=== PATIENT | female | born 1945 | race Caucasian/White ===

== ENCOUNTER 2019-11-02 13:24 | Inpatient (IN) ==
[2019-11-02 14:53] LABS: ABS Basophils 0.1 10^3/ul (0-0.2); ABS Lymphocytes 0.8 10^3/ul (1.0-4.8); ABS Monocytes 0.4 10^3/ul (0-0.8); ABS Neutrophils 3.9 10^3/ul (1.5-7.7); Eosinophil % 0.9 %; Hematocrit 28 % (35-47); Hemoglobin 9.7 g/dL (12.0-16.0); Lymphocyte % 14.9 %; Mean Corpuscular HGB Conc 35 g/dL (31-36); Mean Corpuscular Hemoglobin 36 pg (27-31); Mean Corpuscular Volume 102 fL (80-97); Mean Platelet Volume 6.4 fL (7.4-10.4); Nucleated Red Blood Cells % 0.1; Platelet Count 177 10^3/uL (150-450); Red Blood Count 2.69 10^6 /uL (3.70-4.87); Red Cell Distribution Width 17 % (10-15); White Blood Count 5.2 10^3/uL (3.5-10.8)
[2019-11-02 15:01] LABS: INR 1.78 (0.82-1.09)
[2019-11-02 15:20] LABS: ALT 22 U/L (7-52); AST 99 U/L (13-39); Albumin 2.5 g/dL (3.2-5.2); Albumin/Globulin Ratio 0.6 (1-3); Alkaline Phosphatase 141 U/L (34-104); Anion Gap 8 mmol/L (2-11); Blood Urea Nitrogen 8 mg/dL (6-24); CO2 Carbon Dioxide 26 mmol/L (22-32); Calcium 8.5 mg/dL (8.6-10.3); Chloride 95 mmol/L (101-111); EGFR African American 125.5 (>60); EGFR Non-African American 103.7 (>60); Globulin 4.3 g/dL (2-4); Glucose 172 mg/dL (70-100); Potassium 3.9 mmol/L (3.5-5.0); Sodium 129 mmol/L (135-145); Total Protein 6.8 g/dL (6.4-8.9)
[2019-11-02 15:24] LABS: Troponin I 0.17 ng/mL (<0.03)
[2019-11-02] MEDS ORDERED: Iohexol 350 (CONTRAST) 500 ML MDV IV ONE (15:49)
[2019-11-02] MEDS ORDERED: Albuterol/Ipratropium NEB.SOL (2.5/0.5 MG) 3 ML NEB.SOLN INH ONE (16:23)
[2019-11-02] MEDS ORDERED: Albuterol/Ipratropium NEB.SOL (2.5/0.5 MG) 3 ML NEB.SOLN ONE ×2 (16:32→17:39)
[2019-11-02] MEDS ORDERED: Nitroglycerin 0.3 mg TAB SL ONE (16:38)
[2019-11-02] MEDS ORDERED: Furosemide 40 mg/4 ml IV VIAL IV SLOW PU ONE ×2 (17:45→22:00)
[2019-11-02] MEDS ORDERED: Furosemide 40 mg/4 ml IV VIAL ONE ×2 (17:52→22:13)
[2019-11-02] MEDS ORDERED: Metoprolol Tartrate 5 mg VIAL 5 ml VIAL (1 mg/ml) IV ONE (18:19)
[2019-11-02] MEDS ORDERED: Ondansetron 4 mg VIAL 2 MG/ML 2 ml VIAL IV PRN (18:33)
[2019-11-02] MEDS ORDERED: Senna TAB 8.6 mg TAB PO PRN (18:33)
[2019-11-02 18:53] LABS: Total Bilirubin 6.8 mg/dL (0.2-1.0)
[2019-11-02 18:56] LABS: Magnesium 1.6 mg/dL (1.9-2.7)
[2019-11-02] MEDS ORDERED: Metoprolol Tartrate 5 mg VIAL 5 ml VIAL (1 mg/ml) IV PRN (18:59)
[2019-11-02] MEDS ORDERED: Thiamine 100 MG/ML 2 ml VIAL (200 mg) IM ONE (18:59)
[2019-11-02 19:06] LABS: Indirect Bilirubin 4.9 mg/dL (0.3-1.0)
[2019-11-02] MEDS ORDERED: Metoprolol Tartrate 5 mg VIAL 5 ml VIAL (1 mg/ml) ONE (19:22)
[2019-11-02 19:34] LABS: Troponin I 0.56 ng/mL (<0.03)
[2019-11-02] MEDS ORDERED: Magnesium Sulfate IV 3 GM in NS 0.9% 100 ml BAG 100 ML IVPB ONE (19:34)
[2019-11-02] MEDS ORDERED: KCL 20 MEQ/100 ML IVPREMIX 20 MEQ/100 ML BAG IV ONE (19:34)
[2019-11-02] MEDS: Brimonidine P 0.15%(NF) OPH SOL 5 ML BTL LEFT EYE SCH (20:51)
[2019-11-02] MEDS: Timolol 0.5% OPTH.SOL BTL BOTH EYES SCH (20:51)
[2019-11-02] MEDS: Latanoprost 0.005% 2.5 ml BTL BOTH EYES SCH (20:52)
[2019-11-02] MEDS ORDERED: Enoxaparin 40 MG/0.4 ML SYR SUBCUT SCH (21:00)
[2019-11-02] MEDS: Lactulose 30 ml UDC PO SCH (21:20)
[2019-11-02 21:59] LABS: Folate 4.93 ng/mL (>3.99)
[2019-11-02 22:00] LABS: Vitamin B12 677 pg/mL (180-914)
[2019-11-02 22:13] LABS: Urine Appearance Clear; Urine Bilirubin Negative (Negative); Urine Blood 1+ (Negative); Urine Color Yellow; Urine Glucose Negative (Negative); Urine Ketones Negative (Negative); Urine Nitrite Negative (Negative); Urine Protein Negative (Negative); Urine Specific Gravity 1.005 (1.010-1.030); Urine Urobilinogen Negative (Negative)
[2019-11-02 22:17] LABS: Troponin I 0.62 ng/mL (<0.03)
[2019-11-02 22:18] LABS: Urine Bacteria Absent (Absent); Urine Red Blood Cell Trace(0-2/hpf) (Absent); Urine Squamous Epithelial Cell Present (Absent); Urine White Blood Cell Trace(0-5/hpf) (Absent)
[2019-11-03] MEDS ORDERED: Metoprolol Tartrate 5 mg VIAL 5 ml VIAL (1 mg/ml) IV SCH
[2019-11-03] MEDS ORDERED: LORazepam 2 mg VIAL 1 ml IV PUSH ONE ×2 (03:25→20:50)
[2019-11-03] MEDS ORDERED: Lorazepam PYXIS KEY PRN ×2 (03:25→20:50)
[2019-11-03 04:30] LABS: ABS Basophils 0.1 10^3/ul (0-0.2); ABS Monocytes 0.6 10^3/ul (0-0.8); ABS Neutrophils 6.1 10^3/ul (1.5-7.7); Hematocrit 27 % (35-47); Hemoglobin 9.2 g/dL (12.0-16.0); Lymphocyte % 12.5 %; Mean Corpuscular HGB Conc 35 g/dL (31-36); Mean Corpuscular Hemoglobin 36 pg (27-31); Mean Corpuscular Volume 102 fL (80-97); Mean Platelet Volume 6.9 fL (7.4-10.4); Platelet Count 171 10^3/uL (150-450); Red Blood Count 2.59 10^6 /uL (3.70-4.87); Red Cell Distribution Width 16 % (10-15); White Blood Count 7.8 10^3/uL (3.5-10.8)
[2019-11-03 04:42] LABS: INR 1.95 (0.82-1.09)
[2019-11-03 04:46] LABS: Indirect Bilirubin 5.4 mg/dL (0.3-1.0); Magnesium 1.9 mg/dL (1.9-2.7)
[2019-11-03] MEDS ORDERED: Iohexol 350 (CONTRAST) 500 ML MDV IV ONE (05:26)
[2019-11-03] MEDS: Furosemide 40 mg/4 ml IV VIAL IV SCH ×2 (06:01→07:01)
[2019-11-03 06:09] LABS: Albumin 2.5 g/dL (3.2-5.2); Anion Gap 9 mmol/L (2-11); CO2 Carbon Dioxide 27 mmol/L (22-32); Calcium 8.5 mg/dL (8.6-10.3); Chloride 95 mmol/L (101-111); Potassium 3.6 mmol/L (3.5-5.0); Sodium 131 mmol/L (135-145)
[2019-11-03 06:15] LABS: ALT 21 U/L (7-52); AST 96 U/L (13-39); Albumin/Globulin Ratio 0.6 (1-3); Alkaline Phosphatase 137 U/L (34-104); BUN/Creatinine Ratio 15.3 (8-20); Blood Urea Nitrogen 11 mg/dL (6-24); EGFR African American 95.8 (>60); EGFR Non-African American 79.2 (>60); Globulin 4.3 g/dL (2-4); Glucose 163 mg/dL (70-100); Total Protein 6.8 g/dL (6.4-8.9)
[2019-11-03 06:21] LABS: Troponin I 0.63 ng/mL (<0.03)
[2019-11-03] MEDS: LORazepam 2 mg VIAL 1 ml IV PUSH SCH ×2 (06:22→10:38)
[2019-11-03] MEDS: Timolol 0.5% OPTH.SOL BTL BOTH EYES SCH ×2 (08:19→20:35)
[2019-11-03] MEDS: Brimonidine P 0.15%(NF) OPH SOL 5 ML BTL LEFT EYE SCH ×2 (08:19→20:33)
[2019-11-03] MEDS ORDERED: Furosemide 40 mg/4 ml IV VIAL IV SLOW PU ONE (08:58)
[2019-11-03] MEDS ORDERED: Phytonadione IV (Adult) 10 MG/ML 1 ML AMP IV ONE (09:03)
[2019-11-03] MEDS ORDERED: Metoprolol Tartrate 5 mg VIAL 5 ml VIAL (1 mg/ml) IV PRN ×2 (09:07)
[2019-11-03 09:10] LABS: Creatine Kinase 98 U/L (10-223)
[2019-11-03 09:10] LABS: Creatine Kinase 70 U/L (10-223)
[2019-11-03] MEDS ORDERED: Magnesium Sulfate 2 gm BAG 2 GM/50 ML BAG IVPB ONE (09:10)
[2019-11-03 09:11] LABS: Creatine Kinase 124 U/L (10-223)
[2019-11-03 09:16] LABS: CKMB ng/mL 3.7 ng/mL (0.6-6.3)
[2019-11-03 09:16] LABS: CKMB ng/mL 6.3 ng/mL (0.6-6.3)
[2019-11-03] MEDS ORDERED: Phytonadione IV (Adult) 5 MG in NS 0.9% 50 ML 50 ML IV ONE (09:30)
[2019-11-03 09:36] LABS: CKMB ng/mL 7.9 ng/mL (0.6-6.3)
[2019-11-03 09:41] LABS: Creatine Kinase 154 U/L (10-223)
[2019-11-03 09:52] LABS: ABS Basophils 0.1 10^3/ul (0-0.2); ABS Lymphocytes 1.1 10^3/ul (1.0-4.8); ABS Monocytes 0.6 10^3/ul (0-0.8); ABS Neutrophils 7.1 10^3/ul (1.5-7.7); Hematocrit 24 % (35-47); Hemoglobin 8.3 g/dL (12.0-16.0); Lymphocyte % 12.2 %; Mean Corpuscular HGB Conc 35 g/dL (31-36); Mean Corpuscular Hemoglobin 36 pg (27-31); Mean Corpuscular Volume 102 fL (80-97); Mean Platelet Volume 7.1 fL (7.4-10.4); Nucleated Red Blood Cells % 0.2; Platelet Count 147 10^3/uL (150-450); Red Blood Count 2.32 10^6 /uL (3.70-4.87); Red Cell Distribution Width 16 % (10-15); White Blood Count 8.9 10^3/uL (3.5-10.8)
[2019-11-03 10:00] LABS: INR 2.08 (0.82-1.09)
[2019-11-03 10:06] LABS: Magnesium 1.7 mg/dL (1.9-2.7)
[2019-11-03 10:13] LABS: Troponin I 0.53 ng/mL (<0.03)
[2019-11-03] MEDS: KCL 20 MEQ/100 ML IVPREMIX 20 MEQ/100 ML BAG IV SCH ×2 (10:17→12:25)
[2019-11-03] MEDS ORDERED: cefTRIAXone 1 gm/50 mL NS BAG 1 GM/50 ML BAG IVPB ONE (10:30)
[2019-11-03 10:40] LABS: % Iron Saturation 104 % (15-55); Iron 116 ug/dL (50-212); Total Iron Binding Capacity 112 mcg/dL (250-450); Transferrin 80 mg/dL (203-362); Unsaturated Iron Binding < 97 ug/dL
[2019-11-03] MEDS ORDERED: Succinylcholine 200 mg VIAL 20 mg/ml 10 ml VIAL (200 mg) ONE ×3 (16:03→23:11)
[2019-11-03] MEDS ORDERED: Etomidate 40 mg/20 ml (2 MG/ML) 20 ml VIAL (40 mg) ONE (16:13)
[2019-11-03] MEDS ORDERED: Propofol 10 mg/ml 100 ML BTL 100 ML ONE (16:16)
[2019-11-03] MEDS ORDERED: Octreotide Acetate 500 MCG/ML 1 ML VIAL IV ONE (16:26)
[2019-11-03] MEDS ORDERED: Propofol 10 mg/ml 100 ML BTL 100 ML IV SCH (17:00)
[2019-11-03] MEDS ORDERED: Octreotide Acetate 100 mcg/ml 50 MCG in NS 0.9% 50 ML 50 ML IV ONE (17:00)
[2019-11-03] MEDS: Lactulose 30 ml UDC PO SCH ×3 (17:21→20:34)
[2019-11-03] MEDS: Rifaximin 20 mg/mL Suspension (Pharmacy to Compound) PO SCH ×2 (17:29→20:35)
[2019-11-03] MEDS: Octreotide Acetate 500 MCG in NS 0.9% 100 ml BAG 100 ML IV SCH (18:18)
[2019-11-03] MEDS ORDERED: Midazolam 50 MG VIAL IV DRIP 50 ML IV SCH (20:00)
[2019-11-03] MEDS: cefTRIAXone 1 gm/50 mL NS BAG 1 GM/50 ML BAG IVPB SCH (20:00)
[2019-11-03 20:23] LABS: ALT 17 U/L (7-52); Albumin 2.2 g/dL (3.2-5.2); Albumin/Globulin Ratio 0.7 (1-3); Alkaline Phosphatase 100 U/L (34-104); Blood Urea Nitrogen 12 mg/dL (6-24); CO2 Carbon Dioxide 24 mmol/L (22-32); Calcium 7.3 mg/dL (8.6-10.3); Chloride 100 mmol/L (101-111); EGFR African American 118.2 (>60); EGFR Non-African American 97.7 (>60); Globulin 3.2 g/dL (2-4); Glucose 112 mg/dL (70-100); Sodium 132 mmol/L (135-145); Total Protein 5.4 g/dL (6.4-8.9)
[2019-11-03 20:25] LABS: Anion Gap 8 mmol/L (2-11)
[2019-11-03] MEDS ORDERED: LORazepam 2 mg VIAL 1 ml ONE (20:30)
[2019-11-03] MEDS: Latanoprost 0.005% 2.5 ml BTL BOTH EYES SCH (20:34)
[2019-11-03] MEDS: Pantoprazole VIAL 40 MG VIAL IV SCH (20:35)
[2019-11-03] MEDS ORDERED: Furosemide 40 mg/4 ml IV VIAL IV SCH (21:00)
[2019-11-03 22:57] LABS: Potassium Redraw 3.5 mmol/L (3.5-5.0)
[2019-11-03] MEDS ORDERED: Etomidate 20 mg/10 ml 2 MG/ML 10 ml VIAL ONE (23:11)
[2019-11-03] MEDS ORDERED: Etomidate 20 mg/10 ml 2 MG/ML 10 ml VIAL IV ONE (23:33)
[2019-11-04] MEDS: Chlorhexidine MOUTHWASH 0.12% 15 ML UDC SCH ×6 (02:14→19:35)
[2019-11-04] MEDS: Midazolam 50 MG VIAL IV DRIP 50 ML IV SCH ×2 (03:26→14:20)
[2019-11-04] MEDS: Octreotide Acetate 500 MCG in NS 0.9% 100 ml BAG 100 ML IV SCH ×2 (05:02→17:15)
[2019-11-04 05:10] LABS: ABS Eosinophils 0.1 10^3/ul (0-0.6); ABS Lymphocytes 1.6 10^3/ul (1.0-4.8); ABS Monocytes 0.6 10^3/ul (0-0.8); ABS Neutrophils 4.1 10^3/ul (1.5-7.7); Hematocrit 22 % (35-47); Hemoglobin 7.5 g/dL (12.0-16.0); Lymphocyte % 25.1 %; Mean Corpuscular HGB Conc 35 g/dL (31-36); Mean Corpuscular Hemoglobin 36 pg (27-31); Mean Corpuscular Volume 102 fL (80-97); Mean Platelet Volume 7.6 fL (7.4-10.4); Nucleated Red Blood Cells % 0.2; Platelet Count 117 10^3/uL (150-450); Red Cell Distribution Width 16 % (10-15); White Blood Count 6.5 10^3/uL (3.5-10.8)
[2019-11-04 05:14] LABS: INR 1.53 (0.82-1.09)
[2019-11-04 05:28] LABS: Albumin 2.2 g/dL (3.2-5.2); Albumin/Globulin Ratio 0.7 (1-3); BUN/Creatinine Ratio 19.3 (8-20); Calcium 8.2 mg/dL (8.6-10.3); EGFR Non-African American 62.8 (>60); Globulin 3.3 g/dL (2-4); Potassium 3.3 mmol/L (3.5-5.0); Total Bilirubin 5.5 mg/dL (0.2-1.0); Total Protein 5.5 g/dL (6.4-8.9)
[2019-11-04] MEDS ORDERED: Potassium Chloride LIQUID 20 MEQ/15 ML LIQUID PO ONE (05:30)
[2019-11-04] MEDS ORDERED: Midazolam 2 mg/2 ml VIAL 1 mg/ml 2 ml VIAL (2 mg) IV SLOW PU ONE (05:37)
[2019-11-04 06:25] LABS: Ammonia 51 mcmol/L (16-53)
[2019-11-04] MEDS: Pantoprazole VIAL 40 MG VIAL IV SCH ×2 (08:32→20:19)
[2019-11-04] MEDS: Rifaximin 20 mg/mL Suspension (Pharmacy to Compound) PO SCH ×2 (08:32→20:19)
[2019-11-04] MEDS: Lactulose 30 ml UDC PO SCH ×3 (08:32→20:19)
[2019-11-04] MEDS: Brimonidine P 0.15%(NF) OPH SOL 5 ML BTL LEFT EYE SCH ×2 (08:56→20:18)
[2019-11-04] MEDS: Timolol 0.5% OPTH.SOL BTL BOTH EYES SCH ×2 (08:57→20:18)
[2019-11-04] MEDS ORDERED: Phytonadione IV (Adult) 10 MG in NS 0.9% 50 ML 50 ML IV SCH (09:00)
[2019-11-04] MEDS ORDERED: Pantoprazole VIAL 40 MG VIAL IV SCH (09:00)
[2019-11-04] MEDS ORDERED: Albumin Human 25% 12.5 GM/50 ML BTL IV ONE ×2 (09:16→11:45)
[2019-11-04] MEDS ORDERED: Lactated Ringers 1000 ml BAG 500 ML IV SCH (10:00)
[2019-11-04 11:05] LABS: Hematocrit 20 % (35-47); Mean Corpuscular HGB Conc 35 g/dL (31-36); Mean Corpuscular Hemoglobin 36 pg (27-31); Mean Corpuscular Volume 102 fL (80-97); Mean Platelet Volume 7.5 fL (7.4-10.4); Platelet Count 111 10^3/uL (150-450); Red Blood Count 1.98 10^6 /uL (3.70-4.87); Red Cell Distribution Width 16 % (10-15); White Blood Count 5.1 10^3/uL (3.5-10.8)
[2019-11-04 13:02] LABS: BNP > 1300 pg/mL (<=100)
[2019-11-04] MEDS ORDERED: Iodixanol (CONTRAST) 320 MG/ML 100 ML SDV IV ONE (13:26)
[2019-11-04] MEDS ORDERED: fentaNYL 100 mcg/2 ml 50 MCG/ML VIAL ONE (13:36)
[2019-11-04] MEDS ORDERED: fentaNYL 100 mcg/2 ml 50 MCG/ML VIAL IV SLOW PU ONE (14:34)
[2019-11-04] MEDS ORDERED: Phenylephrine IV 50 MG in NS 0.9% 250 ml 245 ML IV SCH (15:00)
[2019-11-04] MEDS ORDERED: Furosemide 40 mg/4 ml IV VIAL IV SLOW PU ONE (16:41)
[2019-11-04] MEDS: cefTRIAXone 1 gm/50 mL NS BAG 1 GM/50 ML BAG IVPB SCH (20:02)
[2019-11-04] MEDS: Latanoprost 0.005% 2.5 ml BTL BOTH EYES SCH (20:17)
[2019-11-04 20:55] LABS: Hematocrit 21 % (35-47); Hemoglobin 7.1 g/dL (12.0-16.0)
[2019-11-04 21:29] LABS: Calcium 8.3 mg/dL (8.6-10.3)
[2019-11-04 21:35] LABS: BUN/Creatinine Ratio 15.3 (8-20); EGFR African American 58.1 (>60)
[2019-11-05] MEDS: Chlorhexidine MOUTHWASH 0.12% 15 ML UDC SCH ×7 (00:43→23:35)
[2019-11-05] MEDS: Octreotide Acetate 500 MCG in NS 0.9% 100 ml BAG 100 ML IV SCH ×2 (00:46→08:09)
[2019-11-05] MEDS: Midazolam 50 MG VIAL IV DRIP 50 ML IV SCH (04:29)
[2019-11-05 05:02] LABS: ABS Basophils 0.1 10^3/ul (0-0.2); ABS Eosinophils 0.2 10^3/ul (0-0.6); ABS Lymphocytes 1.7 10^3/ul (1.0-4.8); ABS Monocytes 0.6 10^3/ul (0-0.8); ABS Neutrophils 3.4 10^3/ul (1.5-7.7); Eosinophil % 2.7 %; Hematocrit 20 % (35-47); Lymphocyte % 29.4 %; Mean Corpuscular HGB Conc 35 g/dL (31-36); Mean Corpuscular Hemoglobin 36 pg (27-31); Mean Corpuscular Volume 103 fL (80-97); Mean Platelet Volume 6.9 fL (7.4-10.4); Platelet Count 114 10^3/uL (150-450); Red Blood Count 1.95 10^6 /uL (3.70-4.87); Red Cell Distribution Width 16 % (10-15); White Blood Count 5.9 10^3/uL (3.5-10.8)
[2019-11-05 05:10] LABS: INR 1.49 (0.82-1.09)
[2019-11-05 05:21] LABS: Albumin 2.2 g/dL (3.2-5.2); Albumin/Globulin Ratio 0.7 (1-3); BUN/Creatinine Ratio 15.3 (8-20); Calcium 8.2 mg/dL (8.6-10.3); EGFR African American 58.1 (>60); Indirect Bilirubin 3.7 mg/dL (0.3-1.0); Magnesium 1.7 mg/dL (1.9-2.7); Phosphorus 2.6 mg/dL (2.5-5.0); Potassium 2.9 mmol/L (3.5-5.0); Total Bilirubin 5.8 mg/dL (0.2-1.0); Total Protein 5.2 g/dL (6.4-8.9)
[2019-11-05] MEDS ORDERED: KCL 10 MEQ/100 ML IVPREMIX 100 ml BAG IV ONE (05:45)
[2019-11-05] MEDS: KCL 20 MEQ/100 ML IVPREMIX 20 MEQ/100 ML BAG IV SCH ×4 (06:07→20:45)
[2019-11-05] MEDS ORDERED: Magnesium Sulfate 2 gm BAG 2 GM/50 ML BAG IVPB ONE (07:16)
[2019-11-05] MEDS ORDERED: Phenylephrine IV 50 MG in NS 0.9% 250 ml 245 ML IV SCH (08:09)
[2019-11-05] MEDS: Pantoprazole VIAL 40 MG VIAL IV SCH ×2 (08:16→20:28)
[2019-11-05] MEDS ORDERED: Dextrose 50% Syringe 50 ml 25 GM/50 ML SYRINGE IV PUSH PRN (08:20)
[2019-11-05] MEDS: Lactulose 30 ml UDC PO SCH ×3 (08:29→20:10)
[2019-11-05] MEDS: Rifaximin 20 mg/mL Suspension (Pharmacy to Compound) PO SCH ×2 (08:29→20:10)
[2019-11-05] MEDS: Heparin 5000 UNITS/ML 1 mL VIAL SUBCUT SCH ×2 (08:55→20:28)
[2019-11-05] MEDS ORDERED: Albumin Human 25% 25 GM/100 ML BTL IV ONE (09:00)
[2019-11-05] MEDS: Ondansetron 4 mg VIAL 2 MG/ML 2 ml VIAL IV PRN (10:00)
[2019-11-05] MEDS: Brimonidine P 0.15%(NF) OPH SOL 5 ML BTL LEFT EYE SCH ×2 (10:11→20:29)
[2019-11-05] MEDS: Timolol 0.5% OPTH.SOL BTL BOTH EYES SCH ×2 (10:11→20:30)
[2019-11-05] MEDS ORDERED: fentaNYL INFUSION 50 MCG/ML 2,500 MCG/50 ML BAG IV SCH (11:00)
[2019-11-05] MEDS ORDERED: Dexmedetomidine 1,000 MCG in NS 0.9% 250 ml 240 ML IV SCH (11:00)
[2019-11-05] MEDS: cefTRIAXone 1 gm/50 mL NS BAG 1 GM/50 ML BAG IVPB SCH (13:00)
[2019-11-05 16:41] LABS: Hematocrit 20 % (35-47)
[2019-11-05 17:04] LABS: BUN/Creatinine Ratio 14.3 (8-20); Calcium 8.2 mg/dL (8.6-10.3); EGFR African American 57.5 (>60); EGFR Non-African American 47.6 (>60); Potassium 3.1 mmol/L (3.5-5.0)
[2019-11-05] MEDS ORDERED: Potassium Chloride LIQUID 20 MEQ/15 ML LIQUID PO ONE (17:47)
[2019-11-05] MEDS: Latanoprost 0.005% 2.5 ml BTL BOTH EYES SCH (20:29)
[2019-11-05] MEDS ORDERED: KCL 20 MEQ/100 ML IVPREMIX 20 MEQ/100 ML BAG IV ONE (21:00)
[2019-11-06] MEDS: Chlorhexidine MOUTHWASH 0.12% 15 ML UDC SCH ×5 (03:57→20:48)
[2019-11-06 04:56] LABS: ABS Basophils 0.1 10^3/ul (0-0.2); ABS Eosinophils 0.3 10^3/ul (0-0.6); ABS Lymphocytes 2.2 10^3/ul (1.0-4.8); ABS Monocytes 1.1 10^3/ul (0-0.8); ABS Neutrophils 3.6 10^3/ul (1.5-7.7); Hematocrit 20 % (35-47); Hemoglobin 7.2 g/dL (12.0-16.0); Lymphocyte % 30.5 %; Mean Corpuscular HGB Conc 36 g/dL (31-36); Mean Corpuscular Hemoglobin 37 pg (27-31); Mean Corpuscular Volume 104 fL (80-97); Mean Platelet Volume 7.5 fL (7.4-10.4); Nucleated Red Blood Cells % 0.1; Platelet Count 135 10^3/uL (150-450); Red Blood Count 1.97 10^6 /uL (3.70-4.87); Red Cell Distribution Width 16 % (10-15); White Blood Count 7.2 10^3/uL (3.5-10.8)
[2019-11-06 05:04] LABS: INR 1.56 (0.82-1.09)
[2019-11-06 05:13] LABS: Albumin 2.1 g/dL (3.2-5.2); Albumin/Globulin Ratio 0.8 (1-3); BUN/Creatinine Ratio 12.6 (8-20); Calcium 8.3 mg/dL (8.6-10.3); EGFR African American 53.7 (>60); EGFR Non-African American 44.3 (>60); Globulin 2.8 g/dL (2-4); Phosphorus 2.3 mg/dL (2.5-5.0); Potassium 3.5 mmol/L (3.5-5.0); Total Bilirubin 6.3 mg/dL (0.2-1.0); Total Protein 4.9 g/dL (6.4-8.9)
[2019-11-06] MEDS: Pantoprazole VIAL 40 MG VIAL IV SCH ×2 (09:13→20:41)
[2019-11-06] MEDS: Brimonidine P 0.15%(NF) OPH SOL 5 ML BTL LEFT EYE SCH ×2 (09:13→21:11)
[2019-11-06] MEDS: Timolol 0.5% OPTH.SOL BTL BOTH EYES SCH ×2 (09:13→21:10)
[2019-11-06] MEDS: Heparin 5000 UNITS/ML 1 mL VIAL SUBCUT SCH ×2 (09:13→10:40)
[2019-11-06] MEDS: Rifaximin 20 mg/mL Suspension (Pharmacy to Compound) PO SCH ×2 (09:13→20:48)
[2019-11-06] MEDS: Lactulose 30 ml UDC PO SCH ×3 (09:13→20:48)
[2019-11-06] MEDS ORDERED: Albumin Human 25% 25 GM/100 ML BTL IV ONE (09:49)
[2019-11-06] MEDS ORDERED: Lactated Ringers 500 ml BAG 500 ML IV SCH (10:00)
[2019-11-06] MEDS: Thiamine 100 MG/ML 2 ml VIAL 100 MG in NS 0.9% 50 ML 50 ML IV SCH (10:30)
[2019-11-06 10:45] LABS: Urine Appearance Clear; Urine Bilirubin 1+ (Negative); Urine Blood 2+ (Negative); Urine Color Amber; Urine Glucose Negative (Negative); Urine Ketones Negative (Negative); Urine Nitrite Negative (Negative); Urine Protein 1+(30 mg/dL) (Negative); Urine Specific Gravity 1.024 (1.010-1.030); Urine Urobilinogen Positive (Negative)
[2019-11-06 10:48] LABS: Urine Bacteria Absent (Absent); Urine Red Blood Cell 3+(>10/hpf) (Absent); Urine Squamous Epithelial Cell Present (Absent); Urine White Blood Cell 1+(6-10/hpf) (Absent)
[2019-11-06] MEDS ORDERED: Norepinephrine 16MCG/ML IVPRE 4,000 MCG/250 ML BAG IV SCH (11:00)
[2019-11-06 11:07] LABS: Urine Chloride Concentration < 22 mmol/L; Urine Potassium Concentration 136.5 mmol/L; Urine Sodium Concentration < 18 mmol/L
[2019-11-06 11:25] LABS: Urine TP Concentration 27 mg/dL
[2019-11-06 12:23] LABS: ABS Basophils 0.1 10^3/ul (0-0.2); ABS Eosinophils 0.3 10^3/ul (0-0.6); ABS Lymphocytes 2.9 10^3/ul (1.0-4.8); ABS Monocytes 1.2 10^3/ul (0-0.8); ABS Neutrophils 3.4 10^3/ul (1.5-7.7); Eosinophil % 3.6 %; Hematocrit 22 % (35-47); Hemoglobin 7.6 g/dL (12.0-16.0); Lymphocyte % 36.6 %; Mean Corpuscular HGB Conc 35 g/dL (31-36); Mean Corpuscular Hemoglobin 37 pg (27-31); Mean Corpuscular Volume 105 fL (80-97); Mean Platelet Volume 7.8 fL (7.4-10.4); Nucleated Red Blood Cells % 0.2; Platelet Count 144 10^3/uL (150-450); Red Blood Count 2.08 10^6 /uL (3.70-4.87); Red Cell Distribution Width 16 % (10-15); White Blood Count 7.9 10^3/uL (3.5-10.8)
[2019-11-06 12:37] LABS: Calcium 8.5 mg/dL (8.6-10.3); EGFR African American 55.8 (>60); EGFR Non-African American 46.1 (>60); Potassium 3.5 mmol/L (3.5-5.0)
[2019-11-06] MEDS: cefTRIAXone 1 gm/50 mL NS BAG 1 GM/50 ML BAG IVPB SCH (13:25)
[2019-11-06] MEDS: Octreotide Acetate 500 MCG in NS 0.9% 100 ml BAG 100 ML IV SCH (13:38)
[2019-11-06 13:49] LABS: Urine Creatinine Concentration 151.71 mg/dL
[2019-11-06] MEDS ORDERED: Phytonadione Oral Solution 5 MG/25 ML UDC PO ONE (14:02)
[2019-11-06] MEDS ORDERED: Potassium Phosphate IV 10 MMOLE in NS 0.9% 250 ml 250 ML IVPB ONE (14:30)
[2019-11-06] MEDS: Norepinephrine 16MCG/ML IVPRE 4,000 MCG/250 ML BAG IV SCH ×2 (16:21→20:47)
[2019-11-06] MEDS: Albumin Human 25% 12.5 GM/50 ML BTL IV SCH (20:34)
[2019-11-06] MEDS: Latanoprost 0.005% 2.5 ml BTL BOTH EYES SCH (21:11)
[2019-11-07] MEDS: Chlorhexidine MOUTHWASH 0.12% 15 ML UDC SCH ×6 (00:11→19:57)
[2019-11-07] MEDS: Norepinephrine 16MCG/ML IVPRE 4,000 MCG/250 ML BAG IV SCH ×4 (01:51→23:00)
[2019-11-07] MEDS ORDERED: NS 0.9% 500 ml BAG 500 ML IV SCH (02:00)
[2019-11-07 03:38] LABS: Hematocrit 22 % (35-47); Hemoglobin 7.5 g/dL (12.0-16.0); Mean Corpuscular HGB Conc 34 g/dL (31-36); Mean Corpuscular Hemoglobin 36 pg (27-31); Mean Corpuscular Volume 104 fL (80-97); Mean Platelet Volume 6.9 fL (7.4-10.4); Platelet Count 138 10^3/uL (150-450); Red Blood Count 2.12 10^6 /uL (3.70-4.87); Red Cell Distribution Width 16 % (10-15); White Blood Count 7.1 10^3/uL (3.5-10.8)
[2019-11-07 03:53] LABS: Albumin 2.5 g/dL (3.2-5.2); Albumin/Globulin Ratio 0.9 (1-3); BUN/Creatinine Ratio 12.1 (8-20); EGFR African American 60.7 (>60); EGFR Non-African American 50.1 (>60); Globulin 2.7 g/dL (2-4); Potassium 3.3 mmol/L (3.5-5.0); Total Bilirubin 6.7 mg/dL (0.2-1.0); Total Protein 5.2 g/dL (6.4-8.9)
[2019-11-07] MEDS: Octreotide Acetate 500 MCG in NS 0.9% 100 ml BAG 100 ML IV SCH (05:15)
[2019-11-07] MEDS: KCL 20 MEQ/100 ML IVPREMIX 20 MEQ/100 ML BAG IV SCH ×4 (05:15→19:57)
[2019-11-07 05:43] LABS: Magnesium 1.8 mg/dL (1.9-2.7); Phosphorus 3.1 mg/dL (2.5-5.0)
[2019-11-07] MEDS ORDERED: KCL 20 MEQ/100 ML IVPREMIX 20 MEQ/100 ML BAG IV SCH ×2 (06:00→08:00)
[2019-11-07] MEDS ORDERED: Magnesium Sulfate 2 gm BAG 2 GM/50 ML BAG IVPB ONE (07:51)
[2019-11-07] MEDS ORDERED: Norepinephrine 16MCG/ML IVPRE 4,000 MCG/250 ML BAG IV SCH (07:53)
[2019-11-07] MEDS: Pantoprazole VIAL 40 MG VIAL IV SCH ×2 (08:13→20:34)
[2019-11-07] MEDS: Albumin Human 25% 12.5 GM/50 ML BTL IV SCH ×2 (08:14→20:33)
[2019-11-07] MEDS: Lactulose 30 ml UDC PO SCH ×3 (08:14→20:33)
[2019-11-07] MEDS: Rifaximin 20 mg/mL Suspension (Pharmacy to Compound) PO SCH ×2 (08:14→20:35)
[2019-11-07] MEDS: Timolol 0.5% OPTH.SOL BTL BOTH EYES SCH ×2 (08:15→20:04)
[2019-11-07] MEDS: Brimonidine P 0.15%(NF) OPH SOL 5 ML BTL LEFT EYE SCH ×2 (08:15→19:57)
[2019-11-07] MEDS: Metoclopramide 5 MG/ML VIAL (10 mg) IV SLOW PU SCH ×4 (08:37→17:52)
[2019-11-07] MEDS ORDERED: KCL 20 MEQ/100 ML IVPREMIX 20 MEQ/100 ML BAG IV ONE ×2 (08:57→15:25)
[2019-11-07] MEDS: Thiamine 100 MG/ML 2 ml VIAL 100 MG in NS 0.9% 50 ML 50 ML IV SCH (09:42)
[2019-11-07] MEDS: cefTRIAXone 1 gm/50 mL NS BAG 1 GM/50 ML BAG IVPB SCH (12:29)
[2019-11-07 14:57] LABS: Calcium 7.8 mg/dL (8.6-10.3); EGFR African American 65.6 (>60); EGFR Non-African American 54.2 (>60); Potassium 3.2 mmol/L (3.5-5.0)
[2019-11-07] MEDS ORDERED: Magnesium Sulfate IV 1GM/100ML 1 GM/100 ML BAG IV ONE (15:25)
[2019-11-07] MEDS: Latanoprost 0.005% 2.5 ml BTL BOTH EYES SCH (20:34)
[2019-11-07] MEDS: Ondansetron 4 mg VIAL 2 MG/ML 2 ml VIAL IV PRN (22:57)
[2019-11-08] MEDS: Chlorhexidine MOUTHWASH 0.12% 15 ML UDC SCH ×7 (00:03→23:06)
[2019-11-08] MEDS: Octreotide Acetate 500 MCG in NS 0.9% 100 ml BAG 100 ML IV SCH ×2 (00:04→20:52)
[2019-11-08] MEDS: Metoclopramide 5 MG/ML VIAL (10 mg) IV SLOW PU SCH (02:30)
[2019-11-08 04:57] LABS: Calcium 7.8 mg/dL (8.6-10.3); Magnesium 2.2 mg/dL (1.9-2.7); Potassium 3.3 mmol/L (3.5-5.0)
[2019-11-08 04:58] LABS: Hematocrit 24 % (35-47); Mean Corpuscular HGB Conc 34 g/dL (31-36); Mean Corpuscular Hemoglobin 36 pg (27-31); Mean Corpuscular Volume 106 fL (80-97); Mean Platelet Volume 7.2 fL (7.4-10.4); Platelet Count 137 10^3/uL (150-450); Red Blood Count 2.25 10^6 /uL (3.70-4.87); Red Cell Distribution Width 16 % (10-15)
[2019-11-08 05:03] LABS: BUN/Creatinine Ratio 13.4 (8-20); EGFR African American 67.9 (>60); EGFR Non-African American 56.1 (>60)
[2019-11-08] MEDS ORDERED: NS 0.9% 50 ML 50 ML ONE (07:49)
[2019-11-08] MEDS: Albumin Human 25% 12.5 GM/50 ML BTL IV SCH ×2 (08:40→20:33)
[2019-11-08] MEDS: Lactulose 30 ml UDC PO SCH ×2 (08:41→13:54)
[2019-11-08] MEDS: Multivitamins ADULT w/MIN LIQ 15 ML UDC PO SCH (08:41)
[2019-11-08] MEDS: Timolol 0.5% OPTH.SOL BTL BOTH EYES SCH ×2 (08:41→20:43)
[2019-11-08] MEDS: Brimonidine P 0.15%(NF) OPH SOL 5 ML BTL LEFT EYE SCH ×2 (08:41→20:42)
[2019-11-08] MEDS: Pantoprazole VIAL 40 MG VIAL IV SCH ×2 (08:41→20:29)
[2019-11-08] MEDS: Rifaximin 20 mg/mL Suspension (Pharmacy to Compound) PO SCH ×2 (08:42→20:46)
[2019-11-08] MEDS: KCL 20 MEQ/100 ML IVPREMIX 20 MEQ/100 ML BAG IV SCH ×2 (08:45→11:55)
[2019-11-08] MEDS: Thiamine 100 MG/ML 2 ml VIAL 100 MG in NS 0.9% 50 ML 50 ML IV SCH (09:35)
[2019-11-08] MEDS: Norepinephrine 16MCG/ML IVPRE 4,000 MCG/250 ML BAG IV SCH (10:26)
[2019-11-08 15:29] LABS: Albumin 2.5 g/dL (3.2-5.2); Albumin/Globulin Ratio 1.1 (1-3); Calcium 7.7 mg/dL (8.6-10.3); EGFR African American 71.3 (>60); EGFR Non-African American 58.9 (>60); Globulin 2.2 g/dL (2-4); Potassium 3.6 mmol/L (3.5-5.0); Total Bilirubin 6.2 mg/dL (0.2-1.0); Total Protein 4.7 g/dL (6.4-8.9)
[2019-11-08] MEDS ORDERED: Lactulose 300 ML for PR 10 GM/15 ML BTL PR ONE (16:51)
[2019-11-08] MEDS ORDERED: Phytonadione IV (Adult) 5 MG in NS 0.9% 50 ML 50 ML IV ONE (17:30)
[2019-11-08] MEDS: Latanoprost 0.005% 2.5 ml BTL BOTH EYES SCH (20:42)
[2019-11-09] MEDS: Norepinephrine 16MCG/ML IVPRE 4,000 MCG/250 ML BAG IV SCH ×2 (04:29→19:36)
[2019-11-09] MEDS: Chlorhexidine MOUTHWASH 0.12% 15 ML UDC SCH ×5 (04:29→20:01)
[2019-11-09 04:43] LABS: Hematocrit 21 % (35-47); Hemoglobin 7.2 g/dL (12.0-16.0); Mean Corpuscular HGB Conc 35 g/dL (31-36); Mean Corpuscular Hemoglobin 36 pg (27-31); Mean Corpuscular Volume 104 fL (80-97); Mean Platelet Volume 7.3 fL (7.4-10.4); Platelet Count 138 10^3/uL (150-450); Red Blood Count 2.01 10^6 /uL (3.70-4.87); Red Cell Distribution Width 15 % (10-15); White Blood Count 7.9 10^3/uL (3.5-10.8)
[2019-11-09 05:00] LABS: Albumin 2.7 g/dL (3.2-5.2); Albumin/Globulin Ratio 1.3 (1-3); BUN/Creatinine Ratio 15.2 (8-20); Calcium 7.9 mg/dL (8.6-10.3); EGFR African American 72.2 (>60); EGFR Non-African American 59.7 (>60); Globulin 2.1 g/dL (2-4); Potassium 3.2 mmol/L (3.5-5.0); Total Bilirubin 6.5 mg/dL (0.2-1.0); Total Protein 4.8 g/dL (6.4-8.9)
[2019-11-09] MEDS: KCL 20 MEQ/100 ML IVPREMIX 20 MEQ/100 ML BAG IV SCH ×2 (06:03→08:17)
[2019-11-09] MEDS ORDERED: KCL 20 MEQ/100 ML IVPREMIX 20 MEQ/100 ML BAG IV SCH (08:00)
[2019-11-09] MEDS ORDERED: NS 0.9% 50 ML 50 ML ONE (09:21)
[2019-11-09] MEDS: Pantoprazole VIAL 40 MG VIAL IV SCH ×2 (09:43→20:09)
[2019-11-09] MEDS: Albumin Human 25% 12.5 GM/50 ML BTL IV SCH ×2 (10:00→20:01)
[2019-11-09] MEDS: Timolol 0.5% OPTH.SOL BTL BOTH EYES SCH ×2 (10:11→20:09)
[2019-11-09] MEDS: Brimonidine P 0.15%(NF) OPH SOL 5 ML BTL LEFT EYE SCH ×2 (10:13→20:06)
[2019-11-09] MEDS: Rifaximin 20 mg/mL Suspension (Pharmacy to Compound) PO SCH ×2 (10:14→20:09)
[2019-11-09] MEDS: Multivitamins ADULT w/MIN LIQ 15 ML UDC PO SCH (10:14)
[2019-11-09] MEDS: Thiamine 100 MG/ML 2 ml VIAL 100 MG in NS 0.9% 50 ML 50 ML IV SCH (10:25)
[2019-11-09 11:10] LABS: Fibrinogen 81.5 mg/dL (110.8-404.3); INR 1.71 (0.82-1.09)
[2019-11-09 11:39] LABS: Activated Partial Thrombo Time 41.8 seconds (26.0-38.0)
[2019-11-09] MEDS: Latanoprost 0.005% 2.5 ml BTL BOTH EYES SCH (20:06)
[2019-11-10] MEDS: Chlorhexidine MOUTHWASH 0.12% 15 ML UDC SCH ×5 (01:15→17:01)
[2019-11-10] MEDS: Norepinephrine 16MCG/ML IVPRE 4,000 MCG/250 ML BAG IV SCH (04:09)
[2019-11-10] MEDS: Brimonidine P 0.15%(NF) OPH SOL 5 ML BTL LEFT EYE SCH ×2 (07:59→20:56)
[2019-11-10] MEDS: Albumin Human 25% 12.5 GM/50 ML BTL IV SCH (07:59)
[2019-11-10] MEDS: Timolol 0.5% OPTH.SOL BTL BOTH EYES SCH ×2 (08:00→20:57)
[2019-11-10] MEDS: Pantoprazole VIAL 40 MG VIAL IV SCH (08:00)
[2019-11-10] MEDS: Rifaximin 20 mg/mL Suspension (Pharmacy to Compound) PO SCH (08:00)
[2019-11-10] MEDS: KCL 20 MEQ/100 ML IVPREMIX 20 MEQ/100 ML BAG IV SCH ×2 (08:32→10:51)
[2019-11-10] MEDS ORDERED: Succinylcholine 200 mg VIAL 20 mg/ml 10 ml VIAL (200 mg) ONE (08:33)
[2019-11-10] MEDS ORDERED: cefTRIAXone 1 gm/50 mL NS BAG 1 GM/50 ML BAG IVPB SCH (09:00)
[2019-11-10] MEDS: Thiamine 100 MG/ML 2 ml VIAL 100 MG in NS 0.9% 50 ML 50 ML IV SCH (09:09)
[2019-11-10 19:47] VITALS: BP 107/50
[2019-11-10] MEDS: Latanoprost 0.005% 2.5 ml BTL BOTH EYES SCH (20:57)
[2019-11-10] MEDS: Morphine 2 MG/ML SYRINGE IV PRN (23:22)
[2019-11-11] MEDS: Morphine 2 MG/ML SYRINGE IV PRN ×2 (03:17→07:46)
[2019-11-11] MEDS: Timolol 0.5% OPTH.SOL BTL BOTH EYES SCH ×2 (09:38→21:15)
[2019-11-11] MEDS: Brimonidine P 0.15%(NF) OPH SOL 5 ML BTL LEFT EYE SCH ×2 (09:38→21:15)
[2019-11-11] MEDS ORDERED: Atropine 1% (ORAL/SL) 15 ML BTL SL PRN (10:36)
[2019-11-11] MEDS ORDERED: Lorazepam PYXIS KEY PRN (10:37)
[2019-11-11] MEDS ORDERED: LORazepam 2 mg VIAL 1 ml IV PUSH PRN (10:37)
[2019-11-11] MEDS ORDERED: Morphine PCA ADULT 5 MG/ML 30 ML PCA SCH (10:45)
[2019-11-11] MEDS ORDERED: Lorazepam PYXIS KEY ONE (13:19)
[2019-11-11] MEDS: Latanoprost 0.005% 2.5 ml BTL BOTH EYES SCH (21:15)
[2019-11-13] MEDS ORDERED: Scopolamine PATCH Remove NOTE PATCH OFF SCH (19:30)
== END 2019-11-12 00:29 | disposition expired | DRG 870 ==
LOC: ED 13:24 → ICU 18:33
PROVIDERS: ADMIT Internal Medicine; ATTEND Internal Medicine